=== PATIENT | male | born 1965 | race American Indian/Alaskan Native ===

== ENCOUNTER 2017-04-25 20:56 | Observation (INO) | payer MEDICAID, OTHER ==
--- NOTE | 2017-04-25 21:09 | ED PDOC ---
Arrival/HPI - General Chief Complaint: Chest Pain Time Seen by Provider: 04/25/17 21:08 Historian: Patient - History of Present Illness Narrative History of Present Illness (Text): 04/25/17 21:37 51 year old male presents to the emergency department with left sided chest pain for the past week. He states it is non-exertional and radiates to the left upper extremity. Patient also reports pain behind the left lower extremity. Patient reports he has a history of a clot in the left lower extremity 10 years ago. 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 Time/Duration: 1 week Symptom Onset: Gradual Symptom Course: Unchanged Modifying Factors (Text): None Past Medical History - Provider Review Nursing Documentation Reviewed: Yes - Infectious Disease Hx of Infectious Diseases: None - Cardiac Hx Cardiac Disorders: No - Pulmonary Hx Bronchitis: No - Neurological Hx Neurological Disorder: No - HEENT Hx HEENT Disorder: No - Endocrine/Metabolic Hx Endocrine Disorders: No - Hematological/Oncological Hx Blood Disorders: Yes Other/Comment: DVT in L leg - Integumentary Hx Dermatological Disorder: No - Musculoskeletal/Rheumatological Hx Musculoskeletal Disorders: No - Gastrointestinal Hx Gastrointestinal Disorders: Yes Hx Gastroesophageal Reflux: Yes - Psychiatric Hx Psychophysiologic Disorder: No Hx Substance Use: No - Anesthesia Hx Anesthesia: No Family/Social History - Physician Review Nursing Documentation Reviewed: Yes Family/Social History: Unknown Family HX Smoking Status: Never Smoked Hx Alcohol Use: Yes Frequency of alcohol use: Socially Hx Substance Use: No Allergies/Home Meds Allergies/Adverse Reactions: Allergies No Known Allergies Allergy (Verified 04/25/17 21:03) Home Medications: Home Meds Medication Instructions Recorded Confirmed No Known Home Med 04/25/17 04/25/17 Review of Systems - Physician Review All systems were reviewed & negative as marked: Yes Physical Exam - Physical Exam Narrative Physical Exam (Text): - Review of Systems Constitutional: Normal. absent: Fatigue, Weight Change, Fevers Eyes: Normal ENT: Normal Respiratory: Normal absent: SOB, Cough, Sputum Cardiovascular: Chest Pain, Left lower extremity pain absent: Palpitations, Syncope Gastrointestinal: Normal absent: Abdominal pain, Diarrhea, Nausea, Vomiting Genitourinary: Normal. absent: Dysuria, Frequency, Hematuria Musculoskeletal: Normal. absent: Arthralgias, Back Pain, Neck Pain Skin: Normal Neurological: Normal absent: Focal Weakness Endocrine: Normal Hemo/Lymphatic: Normal Psychiatric: Normal - Physical exam Patient appears age appropriate, speaking full sentences without difficulty - Systems Exam Head: Present: Atraumatic, Normocephalic Pupils: Present: PERRL Extraocular Muscles: Present: EOMI Conjunctiva: Present: Normal Mouth: Present: Moist Mucous Membranes Neck: Present: Normal Range of Motion. No: MIDLINE TENDERNESS, Paraspinal Tenderness Respiratory/Chest: Present: Clear to Auscultation, Good Air Exchange. No: Respiratory Distress, Accessory Muscle Use, Tachypneic Cardiovascular: Present: Regular Rate and Rhythm, Normal S1, S2, Peripheral Pulses Present. No: Murmurs Abdomen: Present: Normal Bowel Sounds, No: Tenderness, Peritoneal Signs, Rebound, Guarding, Distention Back: Present: Normal Inspection. No: Midline Tenderness, Paraspinal Tenderness Upper Extremity: Present: Normal Inspection. No: Cyanosis, Edema Lower Extremity: Present: Normal Inspection. No: Edema Neurological: Present: GCS=15, Speech Normal, cranial nerves II through XII fully intact with no cerebellar abnormality, neuro-sensory fully intact. No focal neurological deficits. Skin: Present: Warm, Dry, Normal Color. No: Rashes Lymphatic: Present: OX3, NI, NC Psychiatric: Present: Alert, Oriented x 3, Normal Insight, Normal Concentration Vital Signs Reviewed: Yes Vital Signs Temp Pulse Resp BP Pulse Ox 04/25/17 21:00 97.7 F 72 18 154/95 H 99 Temperature: Afebrile Blood Pressure: Normal Pulse: Regular Respiratory Rate: Normal Appearance: Positive for: Well-Appearing, Non-Toxic, Comfortable Mental Status: Positive for: Alert and Oriented X 3 Medical Decision Making ED Course and Treatment: Impression: 51 year old male presents to the emergency department with left sided chest pain and left lower extremity pain for the past week. On physical exam, patient has no acute findings. Plan: -- US left lower extremity -- Reassess and disposition Progress Notes: EKG shows NSR at [address]-segment elevations, normal intervals. Interpreted by me. 04/25/17 22:58 Chest xray interpreted by ED physician shows no pneumothorax, no cardiomegaly, no infiltrates 23:[address] Genao, accepted pt to tele pt in no distress, aware of and agrees with plan - Lab Interpretations Lab Results: 04/25/17 22:05 Lab Results 04/25/17 22:05: WBC 8.5, RBC 5.65, Hgb 15.9, Hct 46.0, MCV 81.4, MCH 28.1, MCHC 34.6, RDW 14.4, Plt Count 242, MPV 9.5, Gran % 63.5, Lymph % (Auto) 25.7, Parker % (Auto) 8.6 H, Eos % (Auto) 1.8, Baso % (Auto) 0.4, Gran # 5.38, Lymph # 2.2, Parker # 0.7 H, Eos # 0.2, Baso # 0.03 - RAD Interpretation Radiology Orders: 04/25/17 21:19 CHEST PORTABLE [RAD] Stat 04/25/17 21:40 DUPLEX LOWER EXTRM VEIN LEFT [US] Stat - EKG Interpretation Interpreted by ED Physician: Yes Type: 12 lead EKG - Medication Orders Current Medication Orders: Discontinued Medications Aspirin (Aspirin Chewable) 324 mg PO STAT STA Stop: 04/25/17 21:41 Last Admin: 04/25/17 22:18 Dose: 324 mg Nitroglycerin (Nitrostat Sl Tab) 0.3 mg SL STAT STA Stop: 04/25/17 21:41 Last Admin: 04/25/17 22:18 Dose: 0.3 mg - Scribe Statement The provider has reviewed the documentation as recorded by the Chucho Sigala Provider Scribe Attestation: All medical record entries made by the Mckinleyibgregorio were at my direction and personally dictated by me. I have reviewed the chart and agree that the record accurately reflects my personal performance of the history, physical exam, medical decision making, and the department course for this patient. I have also personally directed, reviewed, and agree with the discharge instructions and disposition. Disposition/Present on Arrival - Present on Arrival Any Indicators Present on Arrival: No History of DVT/PE: No History of Uncontrolled Diabetes: No Urinary Catheter: No History of Decub. Ulcer: No History Surgical Site Infection Following: None - Disposition Have Diagnosis and Disposition been Completed?: Yes Diagnosis: Chest pain Disposition: HOSPITALIZED Disposition Time: 23:06 Patient Plan: Observation Condition: FAIR Discharge Instructions (ExitCare): Chest Pain (ED)
[2017-04-25 22:18] LABS: ADD MANUAL DIFF? NO
[2017-04-25 22:20] LABS: BASO # 0.03 K/mm3 (0.0-2.0); BASO % 0.4 % (0.0-3.0); EOS # 0.2 (0.0-0.7); EOS % 1.8 % (1.5-5.0); GRAN # 5.38 (1.4-6.5); GRAN % 63.5 % (50.0-68.0); LYMPH # 2.2 (1.2-3.4); LYMPH % 25.7 % (22.0-35.0); MEAN CELL VOLUME 81.4 fL (80.0-105.0); MEAN CORPUSCULAR HEMOGLOBIN 28.1 pg (25.0-35.0); MEAN CORPUSCULAR HGB CONC 34.6 g/dl (31.0-37.0); MEAN PLATELET VOLUME 9.5 fl (7.0-11.0); MONO # 0.7 (0.1-0.6); MONO % 8.6 % (1.0-6.0); PLATELET COUNT 242 10^3/uL (120.0-450.0); RED CELL DISTRIBUTION WIDTH 14.4 % (11.5-14.5); WHITE BLOOD COUNT 8.5 10^3/ul (4.5-11.0)
[2017-04-25 22:32] LABS: INR 1.01 (0.93-1.08); PARTIAL THROMBOPLASTIN TIME 26.8 Seconds (23.7-30.8)
[2017-04-25 23:18] LABS: ALKALINE PHOSPHATASE 47 U/L (38-133); ALT/SGPT 39 U/L (7-56); AST/SGOT 26 U/L (15-59); BILIRUBIN,TOTAL 0.3 mg/dL (0.2-1.3); BLOOD UREA NITROGEN 14 mg/dL (7-21); CALCIUM 9.3 mg/dL (8.4-10.5); CARBON DIOXIDE 25 mmol/L (21-33); CHLORIDE 103 mmol/L (98-107); GFR AFRICAN-AMERICAN > 60; GLUCOSE,RANDOM 113 mg/dL (70-110); POTASSIUM 4.1 mmol/L (3.6-5.0); SODIUM 137 mmol/L (132-148); TOTAL PROTEIN 7.3 g/dL (5.8-8.3)
[2017-04-25 23:31] LABS: TROPONIN I < 0.01 ng/mL
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
[2017-04-26 06:13] VITALS: O2SAT 100
[2017-04-26 06:25] LABS: ADD MANUAL DIFF? NO
[2017-04-26 06:29] LABS: BASO # 0.02 K/mm3 (0.0-2.0); BASO % 0.3 % (0.0-3.0); EOS # 0.1 (0.0-0.7); EOS % 1.3 % (1.5-5.0); GRAN # 5.01 (1.4-6.5); GRAN % 63.5 % (50.0-68.0); HEMATOCRIT 42.7 % (42.0-52.0); LYMPH # 2.2 (1.2-3.4); LYMPH % 27.9 % (22.0-35.0); MEAN CELL VOLUME 80.6 fL (80.0-105.0); MEAN CORPUSCULAR HEMOGLOBIN 27.2 pg (25.0-35.0); MEAN CORPUSCULAR HGB CONC 33.7 g/dl (31.0-37.0); MEAN PLATELET VOLUME 9.9 fl (7.0-11.0); MONO # 0.6 (0.1-0.6); PLATELET COUNT 239 10^3/uL (120.0-450.0); RED CELL DISTRIBUTION WIDTH 14.3 % (11.5-14.5); WHITE BLOOD COUNT 7.9 10^3/ul (4.5-11.0)
[2017-04-26 07:00] LABS: TROPONIN I < 0.01 ng/mL
[2017-04-26 07:32] LABS: ALKALINE PHOSPHATASE 44 U/L (38-133); ALT/SGPT 38 U/L (7-56); AST/SGOT 26 U/L (15-59); BILIRUBIN,TOTAL 0.4 mg/dL (0.2-1.3); BLOOD UREA NITROGEN 14 mg/dL (7-21); CALCIUM 9.2 mg/dL (8.4-10.5); CARBON DIOXIDE 24 mmol/L (21-33); CHLORIDE 105 mmol/L (98-107); CHOLESTEROL 183 mg/dL (130-200); GFR AFRICAN-AMERICAN > 60; GLUCOSE,RANDOM 105 mg/dL (70-110); POTASSIUM 4.2 mmol/L (3.6-5.0); SODIUM 137 mmol/L (132-148)
--- NOTE | 2017-04-26 09:38 | RAD ---
HISTORY: cough COMPARISON: No prior. FINDINGS: LUNGS: No active pulmonary disease. PLEURA: No significant pleural effusion identified, no pneumothorax apparent. CARDIOVASCULAR: Normal. OSSEOUS STRUCTURES: No significant abnormalities. VISUALIZED UPPER ABDOMEN: Normal. OTHER FINDINGS: None. IMPRESSION: No active disease.
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
[2017-04-26 11:48] LABS: TROPONIN I < 0.01 ng/mL
[2017-04-26 11:55] VITALS: BP 131/76; RESP 18; TEMP 98.5
--- NOTE | 2017-04-26 11:56 | US ---
PROCEDURE: Left lower extremity venous US HISTORY: Leg pain and swelling. Evaluate for DVT. PHYSICIAN(S): Benito Tang MD. TECHNIQUE: Duplex sonography and color-flow Doppler with graded compression were used to evaluate the deep venous system of the left lower extremity. FINDINGS: The visualized deep venous system of the left lower extremity is sonographically normal and compressible. Normal wave forms and augmentation are seen. There is no sonographic evidence for deep venous thrombosis in the visualized segments of the left lower extremity. IMPRESSION: 1. No sonographic evidence for deep venous thrombosis in the visualized segments of the left lower extremity.
--- NOTE | 2017-04-26 13:49 | CARD ---
APPROVED REPORT EXAM: Two-dimensional and M-mode echocardiogram with Doppler and color Doppler. INDICATION Hypertension/HCVD 2D DIMENSIONS Left Atrium (2D)4.0 (1.6-4.0cm)IVSd1.2 (0.7-1.1cm) LVDd4.9 (3.9-5.9cm)PWd1.1 (0.7-1.1cm) LVDs3.5 (2.5-4.0cm)FS (%) 29.3 % LVEF (%)56.2 (>50%) M-Mode DIMENSIONS Aortic Root2.80 (2.2-3.7cm)Aortic Cusp Exc.1.90 (1.5-2.0cm) Aortic Valve AoV Peak Kcsxloej344.0cm/Heather Peak GR.5mmHg Mitral Valve MV E Gnftdgqt44.1cm/sMV A Sktppwen28.0cm/sE/A ratio1.2 TDI E/Lateral E'0.0E/Medial E'0.0 Tricuspid Valve TR Peak [id number]/sRAP [id number] Peak Gr.10mmHg [id number] LEFT VENTRICLE The left ventricle is normal size. There is borderline concentric left ventricular hypertrophy. The left ventricular function is normal. The left ventricular ejection fraction is within the normal range. There is normal LV segmental wall motion. Transmitral Doppler flow pattern is Grade I-abnormal relaxation pattern. RIGHT VENTRICLE The right ventricle is normal size. There is normal right ventricular wall thickness. The right ventricular systolic function is normal. ATRIA The left atrium size is normal. The right atrium size is normal. AORTIC VALVE The aortic valve is normal in structure. No aortic regurgitation is present. MITRAL VALVE The mitral valve is normal in structure. There is no mitral valve regurgitation noted. TRICUSPID VALVE There is no pulmonary hypertension. GREAT VESSELS The aortic root is normal in size. PERICARDIAL EFFUSION There is no pericardial effusion. <Conclusion> The left ventricle is normal size. There is borderline concentric left ventricular hypertrophy. The left ventricular function is normal. The left ventricular ejection fraction is within the normal range. There is normal LV segmental wall motion. Transmitral Doppler flow pattern is Grade I-abnormal relaxation pattern.
--- NOTE | 2017-04-26 13:50 | CP.PCM.DIS ---
<Hamilton Rincon - Last Filed: 04/26/17 13:37> Provider - Provider Date of Admission: 04/25/17 23:06 Attending physician: Nory Alford MD Primary care physician: NO PRIMARY CARE PROVIDER Consults: Cardio: Jelena Time Spent in preparation of Discharge (in minutes): 25 Diagnosis - Discharge Diagnosis (1) Chest pain Status: Acute (2) Pain and swelling of left lower leg Status: Acute Hospital Course - Lab Results Lab Results: Most Recent Lab Values WBC 7.9 10^3/ul (4.5-11.0) 04/26/17 05:45 RBC 5.30 10^6/uL (3.5-6.1) 04/26/17 05:45 Hgb 14.4 gm/dL (14.0-18.0) 04/26/17 05:45 Hct 42.7 % (42.0-52.0) 04/26/17 05:45 MCV 80.6 fL (80.0-105.0) 04/26/17 05:45 MCH 27.2 pg (25.0-35.0) 04/26/17 05:45 MCHC 33.7 g/dl (31.0-37.0) 04/26/17 05:45 RDW 14.3 % (11.5-14.5) 04/26/17 05:45 Plt Count 239 10^3/uL (120.0-450.0) 04/26/17 05:45 MPV 9.9 fl (7.0-11.0) 04/26/17 05:45 Gran % 63.5 % (50.0-68.0) 04/26/17 05:45 Lymph % (Auto) 27.9 % (22.0-35.0) 04/26/17 05:45 Republic % (Auto) 7.0 % (1.0-6.0) H 04/26/17 05:45 Eos % (Auto) 1.3 % (1.5-5.0) L 04/26/17 05:45 Baso % (Auto) 0.3 % (0.0-3.0) 04/26/17 05:45 Gran # 5.01 (1.4-6.5) 04/26/17 05:45 Lymph # 2.2 (1.2-3.4) 04/26/17 05:45 Republic # 0.6 (0.1-0.6) 04/26/17 05:45 Eos # 0.1 (0.0-0.7) 04/26/17 05:45 Baso # 0.02 K/mm3 (0.0-2.0) 04/26/17 05:45 PT 10.9 Seconds (9.9-11.8) 04/25/17 22:05 INR 1.01 (0.93-1.08) 04/25/17 22:05 APTT 26.8 Seconds (23.7-30.8) 04/25/17 22:05 D-Dimer, Quantitative 0.40 mg/L FEU (0-0.50) 04/25/17 22:05 Sodium 137 mmol/L (132-148) 04/26/17 06:00 Potassium 4.2 mmol/L (3.6-5.0) 04/26/17 06:00 Chloride 105 mmol/L (98-107) 04/26/17 06:00 Carbon Dioxide 24 mmol/L (21-33) 04/26/17 06:00 Anion Gap 12 (10-20) 04/26/17 06:00 BUN 14 mg/dL (7-21) 04/26/17 06:00 Creatinine 0.9 mg/dL (0.5-1.4) 04/26/17 06:00 Est GFR ( Amer) > 60 04/26/17 06:00 Est GFR (Non-Af Amer) > 60 04/26/17 06:00 Random Glucose 105 mg/dL (70-110) 04/26/17 06:00 Hemoglobin A1c 6.7 % (4.2-6.5) H 04/26/17 05:45 Calcium 9.2 mg/dL (8.4-10.5) 04/26/17 06:00 Total Bilirubin 0.4 mg/dL (0.2-1.3) 04/26/17 06:00 AST 26 U/L (15-59) 04/26/17 06:00 ALT 38 U/L (7-56) 04/26/17 06:00 Alkaline Phosphatase 44 U/L (38-133) 04/26/17 06:00 Lactate Dehydrogenase 335 U/L (333-699) 04/26/17 11:00 Total Creatine Kinase 194 U/L (35-230) 04/26/17 11:00 CK-MB (CK-2) 1.1 ng/mL (0.0-3.6) 04/25/17 22:52 CK-MB (CK-2) % Cancelled 04/25/17 22:52 Troponin I < 0.01 ng/mL 04/26/17 11:00 NT-Pro-B Natriuret Pep 19.9 pg/mL (0-450) 04/25/17 22:52 Total Protein 7.0 g/dL (5.8-8.3) 04/26/17 06:00 Albumin 3.5 g/dL (3.0-4.8) 04/26/17 06:00 Globulin 3.5 gm/dL 04/26/17 06:00 Albumin/Globulin Ratio 1.0 (1.1-1.8) L 04/26/17 06:00 Triglycerides 138 mg/dL (35-160) 04/26/17 06:00 Cholesterol 183 mg/dL (130-200) 04/26/17 06:00 LDL Cholesterol Direct 120 mg/dL (0-129) 04/26/17 06:00 HDL Cholesterol 40 mg/dL (29-60) 04/26/17 06:00 TSH 3rd Generation 3.41 mIU/mL (0.46-4.68) 04/26/17 05:50 Urine Opiates Screen Negative (NEGATIVE) 04/26/17 08:15 Urine Methadone Screen Negative (NEGATIVE) 04/26/17 08:15 Ur Barbiturates Screen Negative (NEGATIVE) 04/26/17 08:15 Ur Phencyclidine Scrn Negative (NEGATIVE) 04/26/17 08:15 Ur Amphetamines Screen Negative (NEGATIVE) 04/26/17 08:15 U Benzodiazepines Scrn Negative (NEGATIVE) 04/26/17 08:15 U Oth Cocaine Metabols Negative (NEGATIVE) 04/26/17 08:15 U Cannabinoids Screen Negative (NEGATIVE) 04/26/17 08:15 - Hospital Course Hospital Course: This is a 51 yo M with PMH only of prior LLE DVT (~10 yrs prior) treated with 3 months of coumadin who presented to [facility] with new onset LLE swelling/pain and pain in the left axillary region. While here, patient was also seen by Cardio. Trops x3 were negative, and EKGs x2 were notable for possible LVH and pulmonary disease pattern, but no signs of ACS. LLE Venous Duplex was obtained and was negative for DVT. An echo was obtained, official read still pending. As per Cardio, patient was started on aspirin 81mg PO daily, Metoprolol 25mg PO BID, and Lisinopril 5mg PO daily. Scripts were transmitted electronically to the in-house outpatient pharmacy for a 30 day supply of each, which was delivered to patient at bedside. He was instructed to take all medicines as instructed, to follow up with a PMD or at the [facility] within 1 week, and to follow up with a [facility]. Patient expressed understanding and agreement with these instructions. All questions were answered to his satisfaction, then patient was discharged. Patient seen and discussed with attending, Dr. Alford. Discharge Exam - Head Exam Head Exam: ATRAUMATIC, NORMAL INSPECTION, NORMOCEPHALIC - Eye Exam Eye Exam: Normal appearance. absent: Conjunctival injection, Scleral icterus Pupil Exam: absent: Irregular, Unequal - ENT Exam ENT Exam: Mucous Membranes Moist - Neck Exam Neck exam: Full Rom - Respiratory Exam Respiratory Exam: Decreased Breath Sounds (mildly decreased breath sounds in all licona, likely 2/2 body habitus), Clear to PA & Lateral, NORMAL BREATHING PATTERN, UNREMARKABLE. absent: Accessory Muscle Use, Chest Wall Tenderness, Prolonged Expiratory Phase, Rales, Rhonchi, Wheezes - Cardiovascular Exam Cardiovascular Exam: REGULAR RHYTHM, RRR, +S1, +S2. absent: Bradycardia, Tachycardia, Irregular Rhythm, +S4 - GI/Abdominal Exam GI & Abdominal Exam: Normal Bowel Sounds, Soft, Unremarkable. absent: Diminished Bowel Sounds, Hyperactive Bowel Sounds, Hypoactive Bowel Sounds, Tenderness - Extremities Exam Extremities exam: pedal edema (trace-+1 pitting edema in bilateral ankles to bottom 1/3rd of shins) Additional comments: no tenderness to palpation in bilateral LE, no calf tenderness, no erythema/ warmth to palpation/gross asymmetry of bilateral LE - Neurological Exam Neurological exam: Alert, Oriented x3 - Psychiatric Exam Psychiatric exam: Normal Affect, Normal Mood - Skin Skin Exam: Dry, Intact, Normal Color, Warm Discharge Plan - Discharge Medications Prescriptions: Aspirin [Ciales Aspirin] 81 mg PO DAILY #30 tab.chew Lisinopril [Zestril] 5 mg PO DAILY #30 tablet Metoprolol Tartrate [Lopressor] 25 mg PO BID #60 tab - Follow Up Plan Condition: FAIR Disposition: HOME/ ROUTINE Instructions: Chest Pain (DC), Chest Pain (GEN), Pulmonary Embolism (DC), Deep Venous Thrombosis (DC), Safe Use of Anticoagulants (DC), Blood Thinners (DC) Additional Instructions: Please take all prescriptions as instructed. Please follow up with the [facility] clinic or with your PMD within 1 week. Please establish yourself with a marine engineering professor and follow up. Please avoid high sugar and high fat diets. Referrals: [facility] at [facility] [Outside] PCP,NO [Primary Care Provider] - <Nory Alford - Last Filed: 04/26/17 14:12> Provider - Provider Date of Admission: 04/25/17 23:06 Attending physician: Nory Alford MD Primary care physician: NO PRIMARY CARE PROVIDER Hospital Course - Lab Results Lab Results: Most Recent Lab Values WBC 7.9 10^3/ul (4.5-11.0) 04/26/17 05:45 RBC 5.30 10^6/uL (3.5-6.1) 04/26/17 05:45 Hgb 14.4 gm/dL (14.0-18.0) 04/26/17 05:45 Hct 42.7 % (42.0-52.0) 04/26/17 05:45 MCV 80.6 fL (80.0-105.0) 04/26/17 05:45 MCH 27.2 pg (25.0-35.0) 04/26/17 05:45 MCHC 33.7 g/dl (31.0-37.0) 04/26/17 05:45 RDW 14.3 % (11.5-14.5) 04/26/17 05:45 Plt Count 239 10^3/uL (120.0-450.0) 04/26/17 05:45 MPV 9.9 fl (7.0-11.0) 04/26/17 05:45 Gran % 63.5 % (50.0-68.0) 04/26/17 05:45 Lymph % (Auto) 27.9 % (22.0-35.0) 04/26/17 05:45 Republic % (Auto) 7.0 % (1.0-6.0) H 04/26/17 05:45 Eos % (Auto) 1.3 % (1.5-5.0) L 04/26/17 05:45 Baso % (Auto) 0.3 % (0.0-3.0) 04/26/17 05:45 Gran # 5.01 (1.4-6.5) 04/26/17 05:45 Lymph # 2.2 (1.2-3.4) 04/26/17 05:45 Republic # 0.6 (0.1-0.6) 04/26/17 05:45 Eos # 0.1 (0.0-0.7) 04/26/17 05:45 Baso # 0.02 K/mm3 (0.0-2.0) 04/26/17 05:45 PT 10.9 Seconds (9.9-11.8) 04/25/17 22:05 INR 1.01 (0.93-1.08) 04/25/17 22:05 APTT 26.8 Seconds (23.7-30.8) 04/25/17 22:05 D-Dimer, Quantitative 0.40 mg/L FEU (0-0.50) 04/25/17 22:05 Sodium 137 mmol/L (132-148) 04/26/17 06:00 Potassium 4.2 mmol/L (3.6-5.0) 04/26/17 06:00 Chloride 105 mmol/L (98-107) 04/26/17 06:00 Carbon Dioxide 24 mmol/L (21-33) 04/26/17 06:00 Anion Gap 12 (10-20) 04/26/17 06:00 BUN 14 mg/dL (7-21) 04/26/17 06:00 Creatinine 0.9 mg/dL (0.5-1.4) 04/26/17 06:00 Est GFR ( Amer) > 60 04/26/17 06:00 Est GFR (Non-Af Amer) > 60 04/26/17 06:00 Random Glucose 105 mg/dL (70-110) 04/26/17 06:00 Hemoglobin A1c 6.7 % (4.2-6.5) H 04/26/17 05:45 Calcium 9.2 mg/dL (8.4-10.5) 04/26/17 06:00 Total Bilirubin 0.4 mg/dL (0.2-1.3) 04/26/17 06:00 AST 26 U/L (15-59) 04/26/17 06:00 ALT 38 U/L (7-56) 04/26/17 06:00 Alkaline Phosphatase 44 U/L (38-133) 04/26/17 06:00 Lactate Dehydrogenase 335 U/L (333-699) 04/26/17 11:00 Total Creatine Kinase 194 U/L (35-230) 04/26/17 11:00 CK-MB (CK-2) 1.1 ng/mL (0.0-3.6) 04/25/17 22:52 CK-MB (CK-2) % Cancelled 04/25/17 22:52 Troponin I < 0.01 ng/mL 04/26/17 11:00 NT-Pro-B Natriuret Pep 19.9 pg/mL (0-450) 04/25/17 22:52 Total Protein 7.0 g/dL (5.8-8.3) 04/26/17 06:00 Albumin 3.5 g/dL (3.0-4.8) 04/26/17 06:00 Globulin 3.5 gm/dL 04/26/17 06:00 Albumin/Globulin Ratio 1.0 (1.1-1.8) L 04/26/17 06:00 Triglycerides 138 mg/dL (35-160) 04/26/17 06:00 Cholesterol 183 mg/dL (130-200) 04/26/17 06:00 LDL Cholesterol Direct 120 mg/dL (0-129) 04/26/17 06:00 HDL Cholesterol 40 mg/dL (29-60) 04/26/17 06:00 TSH 3rd Generation 3.41 mIU/mL (0.46-4.68) 04/26/17 05:50 Urine Opiates Screen Negative (NEGATIVE) 04/26/17 08:15 Urine Methadone Screen Negative (NEGATIVE) 04/26/17 08:15 Ur Barbiturates Screen Negative (NEGATIVE) 04/26/17 08:15 Ur Phencyclidine Scrn Negative (NEGATIVE) 04/26/17 08:15 Ur Amphetamines Screen Negative (NEGATIVE) 04/26/17 08:15 U Benzodiazepines Scrn Negative (NEGATIVE) 04/26/17 08:15 U Oth Cocaine Metabols Negative (NEGATIVE) 04/26/17 08:15 U Cannabinoids Screen Negative (NEGATIVE) 04/26/17 08:15 Attending/Attestation - Attestation I have personally seen and examined this patient.: Yes I have fully participated in the care of the patient.: Yes I have reviewed all pertinent clinical information, including history, physical exam and plan: Yes Notes (Text): 04/26/17 14:10 attending note; Patient seen and examined with resident. patient is a 51-year-old obese male with a past medical history of DVT is admitted with left lower extremity swelling. Doppler is negative for DVT. Hypertension; started on metoprolol and lisinopril. Dietary education given. cardiac enzymes negative. Echo with no significant abnormality. Cardiology evaluation appreciated. hypercoagulable workup in progress. Advised to follow up results with [facility] clinic as outpatient. Advised to follow-up with [facility] clinic. Advised to complete twyla Paperwork. Diagnosis; Uncontrolled hypertension Obesity History of DVT in the past. 04/26/17 14:12
[2017-04-26 15:08] VITALS: PULSE 81
--- NOTE | 2017-04-27 16:14 | CARD ---
APPROVED REPORT EKG Measurement Heart [id number] CO [id number] [id number] <Conclusion> Normal sinus rhythm Left axis deviation Anteroseptal infarct, age undetermined Abnormal ECG
--- NOTE | 2017-04-27 16:18 | CARD ---
APPROVED REPORT EKG Measurement Heart [id number] <Conclusion> Normal sinus rhythm Possible Left atrial enlargement Left axis deviation Pulmonary disease pattern Left ventricular hypertrophy Nonspecific ST abnormality Abnormal ECG
== END 2017-04-26 15:29 | disposition home or self-care (01) ==
LOC: ED 20:56 → ERH 23:06 → 2RNO 04-26 01:55
PROVIDERS: ADMIT Internal Medicine; ATTEND Internal Medicine
DX: R07.89 Other chest pain (principal); M79.89 Other specified soft tissue disorders; M79.662 Pain in left lower leg; I10 Essential (primary) hypertension; K21.9 Gastro-esophageal reflux disease without esophagitis; E66.01 Morbid (severe) obesity due to excess calories; Z68.41 Body mass index [BMI] 40.0-44.9, adult; Z86.718 Personal history of other venous thrombosis and embolism
CPT/HCPCS: 36415; 71010; 80053; 80061; 81240; 82550; 82553; 83036; 83615; 83880; 84443; 84484; 85025; 85290; 85300; 85303; 85306; 85378; 85610; 85730; 93005; 93306; 93971; 99285; G0378; G0480

== ENCOUNTER 2017-11-20 15:09 | Emergency (ER) | payer OTHER ==
[2017-11-20 15:10] VITALS: BMI 39.1
[2017-11-20 15:41] VITALS: BP 125/87; PULSE 60; RESP 16; TEMP 97.9; O2SAT 96
--- NOTE | 2017-11-20 16:28 | ED PDOC ---
Arrival/HPI - General Chief Complaint: Dizziness/Lightheaded Time Seen by Provider: 11/20/17 16:01 Historian: Patient - History of Present Illness Narrative History of Present Illness (Text): 11/20/17 16:22 52 year old male, whose past medical history includes hypertension, presents to the emergency department complaining of left sided neck pain that began 2-3 days ago. Patient also reports his light headed symptoms that have been occurring for 2 months have worsened once the neck pain began. Patient denies any injuries or numbness. Patient denies any fever, chills, chest pain, shortness of breath, nausea, vomiting, diarrhea, urinary symptoms, back pain, headache, dizziness, or any other complaints. Time/Duration: Other (2-3 days) Symptom Onset: Sudden Symptom Course: Unchanged Activities at Onset: Light Context: Home Past Medical History - Provider Review Nursing Documentation Reviewed: Yes - Infectious Disease Hx of Infectious Diseases: None - Cardiac Hx Cardiac Disorders: Yes Hx Hypertension: Yes - Pulmonary Hx Respiratory Disorders: No - Neurological Hx Neurological Disorder: No - HEENT Hx HEENT Disorder: No - Renal Hx Renal Disorder: No - Endocrine/Metabolic Hx Endocrine Disorders: No - Hematological/Oncological Hx Blood Disorders: No - Integumentary Hx Dermatological Disorder: No - Musculoskeletal/Rheumatological Hx Musculoskeletal Disorders: No Hx Falls: No - Gastrointestinal Hx Gastrointestinal Disorders: No - Genitourinary/Gynecological Hx Genitourinary Disorders: No - Psychiatric Hx Psychophysiologic Disorder: No Hx Substance Use: No - Anesthesia Hx Anesthesia: No Family/Social History - Physician Review Nursing Documentation Reviewed: Yes Family/Social History: No Known Family HX Smoking Status: Never Smoked Hx Alcohol Use: Yes (social) Frequency of alcohol use: Socially Hx Substance Use: No Allergies/Home Meds Allergies/Adverse Reactions: Allergies No Known Allergies Allergy (Verified 11/20/17 15:31) Home Medications: Home Meds Medication Instructions Recorded Confirmed Meclizine [Antivert] 25 mg PO Q8 09/26/17 11/20/17 Tamsulosin [Flomax] 0.4 mg PO DAILY 09/26/17 11/20/17 Review of Systems - Physician Review All systems were reviewed & negative as marked: Yes - Review of Systems Constitutional: absent: Fevers, Other (Chills) Respiratory: absent: SOB Cardiovascular: absent: Chest Pain Gastrointestinal: absent: Diarrhea, Nausea, Vomiting Genitourinary Male: absent: Dysuria, Frequency, Hematuria Musculoskeletal: Neck Pain. absent: Back Pain Neurological: absent: Headache, Dizziness Physical Exam Vital Signs Reviewed: Yes Vital Signs Temp Pulse Resp BP Pulse Ox 11/20/17 15:39 97.9 F 60 16 125/87 96 Temperature: Afebrile Blood Pressure: Normal Pulse: Regular Respiratory Rate: Normal Appearance: Positive for: Well-Appearing, Non-Toxic, Comfortable Pain Distress: None Mental Status: Positive for: Alert and Oriented X 3 - Systems Exam Head: Present: Atraumatic, Normocephalic Pupils: Present: PERRL Extroacular Muscles: Present: EOMI Conjunctiva: Present: Normal Mouth: Present: Moist Mucous Membranes Neck: Present: Paraspinal Tenderness (Left paraspinal tenderness and spasm ), Other (5/5 strength). No: Normal Range of Motion (Decreased ROM when looked to the left), MIDLINE TENDERNESS Respiratory/Chest: Present: Clear to Auscultation, Good Air Exchange. No: Respiratory Distress, Accessory Muscle Use Cardiovascular: Present: Regular Rate and Rhythm, Normal S1, S2. No: Murmurs Abdomen: Present: Normal Bowel Sounds. No: Tenderness, Distention, Peritoneal Signs Back: Present: Normal Inspection Upper Extremity: Present: Normal Inspection. No: Cyanosis, Edema Lower Extremity: Present: Normal Inspection. No: Edema Neurological: Present: GCS=15, CN II-XII Intact, Speech Normal Skin: Present: Warm, Dry, Normal Color. No: Rashes Psychiatric: Present: Alert, Oriented x 3, Normal Insight, Normal Concentration Medical Decision Making ED Course and Treatment: 11/20/17 16:22 Impression: 52 year old male presents complaining of left sided neck pain that began 2-3 days ago. Plan: -- Reassess and disposition Progress Notes: - Scribe Statement The provider has reviewed the documentation as recorded by the Chucho Anders Provider Scribe Attestation: All medical record entries made by the Scribgregorio were at my direction and personally dictated by me. I have reviewed the chart and agree that the record accurately reflects my personal performance of the history, physical exam, medical decision making, and the department course for this patient. I have also personally directed, reviewed, and agree with the discharge instructions and disposition. Disposition/Present on Arrival - Present on Arrival Any Indicators Present on Arrival: No History of DVT/PE: No History of Uncontrolled Diabetes: No Urinary Catheter: No History of Decub. Ulcer: No History Surgical Site Infection Following: None - Disposition Have Diagnosis and Disposition been Completed?: Yes Diagnosis: Torticollis, Dizziness Disposition: HOME/ ROUTINE Disposition Time: 16:30 Patient Plan: Discharge Condition: STABLE Prescriptions: Methocarbamol [Robaxin-750] 1,500 mg PO BID #14 tab Naproxen [Naprosyn] 500 mg PO BID PRN #15 tablet PRN Reason: Pain, Moderate (4-7) Referrals: Renato Benton MD [Primary Care Provider] - Follow up with primary Forms: [facility] (Angolan)
== END 2017-11-20 16:41 | disposition home or self-care (01) ==
LOC: ED 15:09
DX: R42 Dizziness and giddiness (principal); M43.6 Torticollis

== ENCOUNTER 2017-12-12 20:27 | Emergency (ER) | payer OTHER ==
[2017-12-12 20:34] VITALS: BMI 39.9
[2017-12-12 20:38] VITALS: RESP 18; TEMP 97.4
[2017-12-12] MEDS ORDERED: Alum-Mag Hydrox-Simethicone Susp (30 mL) PO STA (20:52)
[2017-12-12] MEDS ORDERED: Sodium Chloride 0.9% 500 ML IV STA (20:52)
[2017-12-12] MEDS ORDERED: Morphine 4 mg/ml ISec IVP STA (20:53)
--- NOTE | 2017-12-12 21:28 | ED PDOC ---
Arrival/HPI - General Chief Complaint: Abdominal Pain Time Seen by Provider: 12/12/17 20:51 Historian: Patient - History of Present Illness Narrative History of Present Illness (Text): 12/12/17 21:17 A 52 year old male presents to the emergency department complaining of epigastric pain for 2 days. Patient describes the pain as a burning sensation with associated nausea and non-bilious non-bloody vomiting. He reports that he is tasting an "acid taste" in his mouth. He reports similar complaint when he was previously diagnosed with stomach ulcers. Patient was seen by PMD today and prescribed medication with no relief of symptoms. Patient reports normal bowel movement today and denies any fever, chills, diarrhea, constipation, urinary symptoms, chest pain, shortness of breath or any other complaints. Patient last had a normal stress test on 09/26/17. PMD: Dr. Benton 12/12/17 21:55 Time/Duration: Other (2 days) Symptom Course: Unchanged Context: Home Past Medical History - Provider Review Nursing Documentation Reviewed: Yes - Infectious Disease Hx of Infectious Diseases: None - Cardiac Hx Cardiac Disorders: Yes Hx Hypertension: Yes - Pulmonary Hx Respiratory Disorders: No - Neurological Hx Neurological Disorder: No - HEENT Hx HEENT Disorder: No - Renal Hx Renal Disorder: No - Endocrine/Metabolic Hx Endocrine Disorders: No Hx Diabetes Mellitus Type 2: Yes - Hematological/Oncological Hx Blood Disorders: No - Integumentary Hx Dermatological Disorder: No - Musculoskeletal/Rheumatological Hx Musculoskeletal Disorders: No Hx Falls: No - Gastrointestinal Hx Gastrointestinal Disorders: No - Genitourinary/Gynecological Hx Genitourinary Disorders: No - Psychiatric Hx Psychophysiologic Disorder: No Hx Substance Use: No - Anesthesia Hx Anesthesia: No Family/Social History - Physician Review Nursing Documentation Reviewed: Yes Family/Social History: No Known Family HX Smoking Status: Never Smoked Hx Alcohol Use: Yes (social) Hx Substance Use: No Allergies/Home Meds Allergies/Adverse Reactions: Allergies No Known Allergies Allergy (Verified 11/20/17 15:31) Home Medications: Home Meds Medication Instructions Recorded Confirmed Meclizine [Antivert] 25 mg PO Q8 09/26/17 12/12/17 Isosorbide Mononitrate [Isosorbide 1 tab PO DAILY 12/12/17 12/12/17 Mononitrate ER] Review of Systems - Physician Review All systems were reviewed & negative as marked: Yes - Review of Systems Constitutional: absent: Fevers, Night Sweats Respiratory: absent: SOB, Cough, Sputum Cardiovascular: absent: Chest Pain, Palpitations Gastrointestinal: Abdominal Pain, Nausea, Vomiting. absent: Constipation, Diarrhea Genitourinary Male: absent: Dysuria, Frequency, Hematuria Skin: absent: Rash Physical Exam Vital Signs Reviewed: Yes Vital Signs Temp Pulse Resp BP Pulse Ox 12/12/17 20:36 97.4 F L 63 18 103/61 100 Temperature: Afebrile Blood Pressure: Normal Pulse: Regular Respiratory Rate: Normal Appearance: Positive for: Well-Appearing, Non-Toxic, Comfortable Pain Distress: None Mental Status: Positive for: Alert and Oriented X 3 - Systems Exam Head: Present: Atraumatic, Normocephalic Pupils: Present: PERRL Extroacular Muscles: Present: EOMI Conjunctiva: Present: Normal Mouth: Present: Moist Mucous Membranes Neck: Present: Normal Range of Motion Respiratory/Chest: Present: Clear to Auscultation, Good Air Exchange. No: Respiratory Distress, Accessory Muscle Use Cardiovascular: Present: Regular Rate and Rhythm, Normal S1, S2. No: Murmurs Abdomen: Present: Tenderness (Scant epigastric tenderness to palpation), Normal Bowel Sounds. No: Distention, Peritoneal Signs, Rebound, Guarding Back: Present: Normal Inspection Upper Extremity: Present: Normal Inspection. No: Cyanosis, Edema Lower Extremity: Present: Normal Inspection. No: Edema Neurological: Present: GCS=15, CN II-XII Intact, Speech Normal Skin: Present: Warm, Dry, Normal Color. No: Rashes Psychiatric: Present: Alert, Oriented x 3, Normal Insight, Normal Concentration Medical Decision Making ED Course and Treatment: 12/12/17 21:17 Impression: A 52 year old male with epigastric pain, nausea and vomiting Plan: -- Chest xray -- EKG -- Labs -- Maalox, Pepcid, Morphine, Zofran and IV fluids -- Reassess and disposition Progress Notes: EKG shows NSR at 58 BPM with LAD, LVH, no ST changes. Interpreted by me. 12/12/17 21:45 Labs grossly normal. Patient is feeling better after medication. He is tolerating po. Abdomen is now soft NT/ND. Call placed to Dr. Benton. She can see patient tomorrow in her office to reevaluate. Patient will likely need GI evaluation for endoscopy - Lab Interpretations Lab Results: 12/12/17 21:10 12/12/17 21:10 Lab Results 12/12/17 21:10: Sodium 142, Potassium 4.6, Chloride 105, Carbon Dioxide 26, Anion Gap 16, BUN 14, Creatinine 0.9, Est GFR ( Amer) > 60, Est GFR (Non- Af Amer) > 60, Random Glucose 84, Calcium 9.7, Phosphorus 3.3, Magnesium 1.8, Total Bilirubin 0.6, AST 36, ALT 34, Alkaline Phosphatase 38, Troponin I < 0.01 , Total Protein 7.5, Albumin 3.9, Globulin 3.6, Albumin/Globulin Ratio 1.1, Lipase 45 12/12/17 21:10: WBC 8.2, RBC 5.26, Hgb 14.3, Hct 42.7, MCV 81.2, MCH 27.2, MCHC 33.5, RDW 14.4, Plt Count 246, MPV 9.9, Gran % 55.9, Lymph % (Auto) 29.2, Mcdonough % (Auto) 10.9 H, Eos % (Auto) 3.8, Baso % (Auto) 0.2, Gran # 4.60, Lymph # (Auto ) 2.4, Mcdonough # (Auto) 0.9 H, Eos # (Auto) 0.3, Baso # (Auto) 0.02 I have reviewed the lab results: Yes - RAD Interpretation Radiology Orders: 12/12/17 20:53 CHEST PORTABLE [RAD] Stat - Medication Orders Current Medication Orders: Discontinued Medications Al Hydrox/Mg Hydrox/Simethicone (Maalox Plus 30 Ml) 30 ml PO STAT STA Stop: 12/12/17 20:53 Last Admin: 12/12/17 21:17 Dose: 30 ml Famotidine (Pepcid) 20 mg IVP STAT STA Stop: 12/12/17 20:53 Last Admin: 12/12/17 21:17 Dose: 20 mg IVP Administration Document 12/12/17 21:17 YP (Rec: 12/12/17 21:17 YP [id number]) Charges for Administration # of IVP Administrations 1 Sodium Chloride (Sodium Chloride 0.9%) 500 mls @ 999 mls/hr IV .Q31M STA Stop: 12/12/17 21:22 Last Admin: 12/12/17 21:16 Dose: 999 mls/hr eMAR Start Stop Document 12/12/17 21:16 YP (Rec: 12/12/17 21:16 YP [id number]) Intravenous Solution Start Date 12/12/17 Start Time 21:16 End Date 12/12/17 End time 21:46 Total Infusion Time 30 Morphine Sulfate (Morphine) 4 mg IVP STAT STA Stop: 12/12/17 20:54 Last Admin: 12/12/17 21:17 Dose: 4 mg MAR Pain Assessment Document 12/12/17 21:17 YP (Rec: 12/12/17 21:17 YP [id number]) Pain Reassessment Is this a pain reassessment? No Sleep Is patient sleeping during reassessment? No Presence of Pain Presence of Pain Yes IVP Administration Document 12/12/17 21:17 YP (Rec: 12/12/17 21:17 YP [id number]) Charges for Administration # of IVP Administrations 1 Ondansetron HCl (Zofran Inj) 4 mg IVP STAT STA Stop: 12/12/17 20:53 Last Admin: 12/12/17 21:17 Dose: 4 mg IVP Administration Document 12/12/17 21:17 YP (Rec: 12/12/17 21:17 YP [id number]) Charges for Administration # of IVP Administrations 1 - Scribe Statement The provider has reviewed the documentation as recorded by the Mckinleyibgregorio Jalloh Provider Scribe Attestation: All medical record entries made by the Scribe were at my direction and personally dictated by me. I have reviewed the chart and agree that the record accurately reflects my personal performance of the history, physical exam, medical decision making, and the department course for this patient. I have also personally directed, reviewed, and agree with the discharge instructions and disposition. Disposition/Present on Arrival - Present on Arrival Any Indicators Present on Arrival: No History of DVT/PE: No History of Uncontrolled Diabetes: No Urinary Catheter: No History of Decub. Ulcer: No History Surgical Site Infection Following: None - Disposition Have Diagnosis and Disposition been Completed?: Yes Diagnosis: Epigastric pain Disposition: HOME/ ROUTINE Disposition Time: 21:47 Patient Plan: Discharge Patient Problems: Current Active Problems Problem Status Onset Epigastric pain Acute Condition: GOOD Discharge Instructions (ExitCare): Gastritis (ED), Diet for Ulcers and Gastritis (ED), Epigastric Pain (ED) Additional Instructions: Follow-up with Dr. Benton tomorrow morning. Return to ED if condition worsens. Prescriptions: Famotidine [Pepcid] 40 mg PO DAILY #30 tab Referrals: Renato Benton MD [Primary Care Provider] - Follow up with primary Oma Jett MD [Medical Doctor] - Follow up with primary Forms: [employer] (Martiniquais)
[2017-12-12 21:32] LABS: BASO # 0.02 K/mm3 (0.0-2.0); BASO % 0.2 % (0.0-3.0); EOS # 0.3 (0.0-0.7); EOS % 3.8 % (1.5-5.0); GRAN # 4.6 (1.4-6.5); GRAN % 55.9 % (50.0-68.0); HEMOGLOBIN 14.3 g/dL (14.0-18.0); LYMPH # 2.4 (1.2-3.4); LYMPH % 29.2 % (22.0-35.0); MEAN CELL VOLUME 81.2 fl (80.0-105.0); MEAN CORPUSCULAR HEMOGLOBIN 27.2 pg (25.0-35.0); MEAN CORPUSCULAR HGB CONC 33.5 g/dl (31.0-37.0); MEAN PLATELET VOLUME 9.9 fl (7.0-11.0); MONO # 0.9 (0.1-0.6); MONO % 10.9 % (1.0-6.0); RBC 5.26 10^6/uL (3.5-6.1); RED CELL DISTRIBUTION WIDTH 14.4 % (11.5-14.5); WHITE BLOOD COUNT 8.2 10^3/ul (4.5-11.0)
[2017-12-12 21:46] LABS: ALB/GLOB RATIO 1.1 (1.1-1.8); ALBUMIN 3.9 g/dL (3.0-4.8); ALT/SGPT 34 U/L (7-56); AST/SGOT 36 U/L (17-59); BLOOD UREA NITROGEN 14 mg/dL (7-21); CALCIUM 9.7 mg/dL (8.4-10.5); GFR AFRICAN-AMERICAN > 60; GFR NON-AFRICAN AMERICAN > 60; LIPASE 45 U/L (23-300); MAGNESIUM 1.8 mg/dL (1.7-2.2)
[2017-12-12 21:53] LABS: TROPONIN I < 0.01 ng/mL
[2017-12-12 21:58] VITALS: BP 122/69; PULSE 62; O2SAT 95
--- NOTE | 2017-12-13 11:22 | RAD ---
HISTORY: epigastric pain, NEED UPRIGHT COMPARISON: 04/25/2017 FINDINGS: LUNGS: No active pulmonary disease. PLEURA: No significant pleural effusion identified, no pneumothorax apparent. CARDIOVASCULAR: Normal. OSSEOUS STRUCTURES: No significant abnormalities. VISUALIZED UPPER ABDOMEN: Normal. OTHER FINDINGS: None. IMPRESSION: No active disease.
--- NOTE | 2017-12-13 16:16 | CARD ---
APPROVED REPORT EKG Measurement Heart [id number] <Conclusion> Sinus bradycardia Left axis deviation Minimal voltage criteria for LVH, may be normal variant Abnormal ECG
== END 2017-12-12 22:04 | disposition home or self-care (01) ==
LOC: ED 20:27
DX: R10.13 Epigastric pain (principal); E11.9 Type 2 diabetes mellitus without complications; I10 Essential (primary) hypertension
CPT/HCPCS: 71045; 80053; 83690; 83735; 84100; 84484; 85025; 93005; 96374; 96375; 99284; J2270; J2405; J7040

== ENCOUNTER 2018-10-05 14:06 | Emergency (ER) | payer MEDICAID, OTHER ==
[2018-10-05 14:07] VITALS: BMI 39.9
--- NOTE | 2018-10-05 14:19 | ED PDOC ---
Arrival/HPI - General Chief Complaint: Chest Pain Historian: Patient - History of Present Illness Narrative History of Present Illness (Text): 10/05/18 14:16 53 y/o male, pmh including htn/dm/dvt, nkda, c/o lt. sided chest pain x 5 days. Aching pain, aggravated by touching and movement, no numbness or tingling, no nausea or vomiting, admits rt. thigh pain and lt. calf pain for the past 1 week, no palpitation, no shortness of breath, no night sweat, no numbness or tingling, no rash, no urinary symptoms, no other medical or psychological complaints. Past Medical History - Provider Review Nursing Documentation Reviewed: Yes - Infectious Disease Hx of Infectious Diseases: None - Cardiac Hx Cardiac Disorders: Yes Hx Hypertension: Yes - Pulmonary Hx Respiratory Disorders: No - Neurological Hx Neurological Disorder: No - HEENT Hx HEENT Disorder: No - Renal Hx Renal Disorder: No - Endocrine/Metabolic Hx Endocrine Disorders: No Hx Diabetes Mellitus Type 2: Yes - Hematological/Oncological Hx Blood Disorders: No - Integumentary Hx Dermatological Disorder: No - Musculoskeletal/Rheumatological Hx Musculoskeletal Disorders: No - Gastrointestinal Hx Gastrointestinal Disorders: No - Genitourinary/Gynecological Hx Genitourinary Disorders: No - Psychiatric Hx Psychophysiologic Disorder: No Hx Substance Use: No - Anesthesia Hx Anesthesia: No Family/Social History - Physician Review Nursing Documentation Reviewed: Yes Family/Social History: Unknown Family HX Smoking Status: Never Smoked Hx Alcohol Use: Yes (social) Hx Substance Use: No Allergies/Home Meds Allergies/Adverse Reactions: Allergies No Known Allergies Allergy (Verified 11/20/17 15:31) Home Medications: Home Meds Medication Instructions Recorded Confirmed Meclizine [Antivert] 25 mg PO Q8 09/26/17 12/12/17 Isosorbide Mononitrate [Isosorbide 1 tab PO DAILY 12/12/17 12/12/17 Mononitrate ER] Review of Systems - Physician Review All systems were reviewed & negative as marked: Yes - Review of Systems Constitutional: absent: Fatigue, Fevers Eyes: absent: Vision Changes ENT: absent: Hearing Changes Respiratory: absent: SOB, Cough Cardiovascular: Chest Pain Gastrointestinal: absent: Abdominal Pain, Diarrhea, Nausea, Vomiting Musculoskeletal: Myalgias. absent: Arthralgias, Back Pain Skin: absent: Rash, Pruritis Neurological: absent: Headache, Dizziness Psychiatric: absent: Anxiety, Depression, Suicidal Ideation Physical Exam Vital Signs Reviewed: Yes Vital Signs Temp Pulse Resp BP Pulse Ox 10/05/18 14:07 97.8 F 97 H 18 148/68 94 L Temperature: Afebrile Blood Pressure: Normal Pulse: Regular Respiratory Rate: Normal Appearance: Positive for: Well-Appearing, Non-Toxic, Comfortable Pain Distress: Mild Mental Status: Positive for: Alert and Oriented X 3 - Systems Exam Head: Present: Atraumatic, Normocephalic Pupils: Present: PERRL Extroacular Muscles: Present: EOMI Conjunctiva: Present: Normal Mouth: Present: Moist Mucous Membranes Neck: Present: Normal Range of Motion Respiratory/Chest: Present: Clear to Auscultation, Good Air Exchange, Tender to Palpation (lt. sided chest pectoralis major muscle region, no deformity, no rash). No: Respiratory Distress, Accessory Muscle Use, Wheezes, Decreased Breath Sounds, Rales, Retracting, Rhonchi, Tachypneic Cardiovascular: Present: Regular Rate and Rhythm, Normal S1, S2. No: Murmurs Abdomen: No: Tenderness, Distention, Peritoneal Signs Back: Present: Normal Inspection Upper Extremity: Present: Normal Inspection, Normal ROM, NORMAL PULSES, Neurovascularly Intact, Capillary Refill < 2s. No: Cyanosis, Edema, Tenderness, Swelling, Erythema, Deformity Lower Extremity: Present: Normal Inspection, NORMAL PULSES, Normal ROM, Neurovascularly Intact, Capillary Refill < 2 s. No: Edema, CALF TENDERNESS, Cyanosis, Neva's Sign, Tenderness, Swelling, Erythema, Deformity Neurological: Present: GCS=15, CN II-XII Intact, Speech Normal, Motor Func Grossly Intact, Gait Normal, Memory Normal Skin: Present: Warm, Dry, Normal Color. No: Rashes Psychiatric: Present: Alert, Oriented x 3, Normal Insight, Normal Concentration Medical Decision Making ED Course and Treatment: 10/05/18 14:18 -labs -ekg -cxr -oxygen 2L/toradol 30mg IV -Observe and reassess 10/05/18 16:14 -EKG: NSR @ 90 BPM, no acute ST or T wave changes compared with previous ekg. -Bilateral LE venuous doppler: as per preliminary report, no acute DVT -CXR show No focal consolidation. -Labs show no acute findings except CPK 258 -Mg within normal limit -BNP within normal limit -Trop within normal limit after 24 hours -Dimer within normal limit. -Pt. stated that he feels better, all labs and radiology results discussed with him, he refused to stay for any further labs/radiology or any consults, stated that he wants to leave which I don't recommend him to leave. -AMA AMA ER The patient refuses to stay in the Emergency Room (ER) to continue the care and wishes to leave the emergency department against my medical advice. Patient was told that staying in the ER is necessary and a full explanation of the reasons why was given, and understood by the patient with alert and oriented x4. The risk of leaving were explained in laymans term and including but not limited to myocardial infarction/heart attack, dissection, pulmonary embolism, pneumonia, pain, worsening of condition, permanent disability and from an undiagnosed or untreated condition. The patient accepts these risks, and is in my judgment is competent and capable of understanding the clinical situation and explanation of the risk of leaving. The patient is able to verbally repeated me back the above explained risks and benefits back to me, and verbally expressed understanding. Patient was given the opportunity to ask questions and change mind. The patient was instructed regarding the best care for the present symptoms, and to follow up as soon as possible with the primary care doctor including specialist or return to the emergency department at any time for continuing care. -You signout against medical advice. You were advised to stay at the hospital for admission for your chest pain, continue all your medications, return to the ER for continuity of care for admission, go see your own pmd and pattern painter as soon as possible. - RAD Interpretation Radiology Orders: Bilateral LE Venuous doppler: as per preliminary report, no acute DVT Chest xray: HISTORY: chest pain COMPARISON: Chest x-ray performed 12/12/17 TECHNIQUE: Chest, one view. FINDINGS: Examination limited by habitus. LUNGS: No focal consolidation. Please note that chest x-ray has limited sensitivity for the detection of pulmonary masses. PLEURA: No significant pleural effusion identified. No definite pneumothorax . CARDIOVASCULAR: Heart size appears top normal. No significant atherosclerotic calcification present. OSSEOUS STRUCTURES: Degenerative changes. VISUALIZED UPPER ABDOMEN: Unremarkable. OTHER FINDINGS: None. IMPRESSION: No focal consolidation. Director Meetings: Radiologist - PA / MEDICAL TECHNOLOGIST CLINICAL / Resident Statement / has reviewed & agrees with the documentation as recorded. Disposition/Present on Arrival - Present on Arrival Any Indicators Present on Arrival: No History of DVT/PE: No History of Uncontrolled Diabetes: No Urinary Catheter: No History of Decub. Ulcer: No History Surgical Site Infection Following: None - Disposition Have Diagnosis and Disposition been Completed?: Yes Diagnosis: Chest pain, Non-compliance Disposition: AGAINST MEDICAL ADVICE Disposition Time: 16:16 Condition: STABLE Discharge Instructions (ExitCare): Chest Pain (ED) Additional Instructions: -You signout against medical advice. You were advised to stay at the hospital for admission for your chest pain, continue all your medications, return to the ER for continuity of care for admission, go see your own pmd and pattern painter as soon as possible. Referrals: Renato Benton MD [Family Provider] - Follow up with primary Nancy Harding MD [Staff Provider] - Follow up with primary Forms: [employer] (Turkmen), WORK NOTE
[2018-10-05 14:53] LABS: BASO # 0.03 K/mm3 (0.0-2.0); BASO % 0.4 % (0.0-3.0); EOS % 0.1 % (1.5-5.0); GRAN # 5.5 (1.4-6.5); GRAN % 73.6 % (50.0-68.0); HEMOGLOBIN 14.7 g/dL (14.0-18.0); LYMPH # 1.1 (1.2-3.4); LYMPH % 14.3 % (22.0-35.0); MEAN CELL VOLUME 80.5 fl (80.0-105.0); MEAN CORPUSCULAR HGB CONC 33.6 g/dl (31.0-37.0); MEAN PLATELET VOLUME 9.6 fl (7.0-11.0); MONO # 0.9 (0.1-0.6); MONO % 11.6 % (1.0-6.0); RBC 5.44 10^6/uL (3.5-6.1); RED CELL DISTRIBUTION WIDTH 14.8 % (11.5-14.5); WHITE BLOOD COUNT 7.5 10^3/uL (4.5-11.0)
--- NOTE | 2018-10-05 14:55 | RAD ---
HISTORY: chest pain COMPARISON: Chest x-ray performed 12/12/17 TECHNIQUE: Chest, one view. FINDINGS: Examination limited by habitus. LUNGS: No focal consolidation. Please note that chest x-ray has limited sensitivity for the detection of pulmonary masses. PLEURA: No significant pleural effusion identified. No definite pneumothorax . CARDIOVASCULAR: Heart size appears top normal. No significant atherosclerotic calcification present. OSSEOUS STRUCTURES: Degenerative changes. VISUALIZED UPPER ABDOMEN: Unremarkable. OTHER FINDINGS: None. IMPRESSION: No focal consolidation.
[2018-10-05 15:00] LABS: ALBUMIN 4.1 g/dL (3.0-4.8); ALT/SGPT 33 U/L (7-56); AST/SGOT 25 U/L (17-59); BLOOD UREA NITROGEN 12 mg/dL (7-21); CALCIUM 9.4 mg/dL (8.4-10.5); GFR NON-AFRICAN AMERICAN > 60; LIPASE 36 U/L (23-300)
[2018-10-05 15:12] LABS: B-TYPE NATRIURETIC PEPTIDE 24.3 pg/mL (0-450); TROPONIN I < 0.01 ng/mL
[2018-10-05] MEDS ORDERED: Sodium Chloride 0.9% 1,000 ML IV STA (15:36)
[2018-10-05 16:21] VITALS: BP 126/87; PULSE 80; RESP 19; TEMP 98
[2018-10-05 16:28] VITALS: O2SAT 99
--- NOTE | 2018-10-06 09:26 | CARD ---
APPROVED REPORT Date of service: 10/05/2018 EKG Measurement Heart [id number] <Conclusion> Normal sinus rhythm RVCD Left anterior fascicular block Left ventricular hypertrophy by voltage PRWP V 1 - [address] abnormality No change except the rate is faster
--- NOTE | 2018-10-06 18:32 | US ---
HISTORY: Leg pain and swelling. Evaluate for DVT PHYSICIAN(S): Benito Tang MD. TECHNIQUE: Duplex sonography and color-flow Doppler with graded compression were used to evaluate the deep venous systems of both lower extremities. FINDINGS: The visualized deep venous systems of both lower extremities are sonographically normal and compressible. Normal wave forms and augmentation are seen. There is no sonographic evidence for deep venous thrombosis in the visualized segments of both lower extremities. IMPRESSION: No sonographic evidence for deep venous thrombosis in the visualized segments of both lower extremities.
== END 2018-10-05 16:25 | disposition left against medical advice (07) ==
LOC: ED 14:06
DX: R07.9 Chest pain, unspecified (principal); Z91.19 Patient's noncompliance with other medical treatment and regimen; I10 Essential (primary) hypertension; E11.9 Type 2 diabetes mellitus without complications
CPT/HCPCS: 71045; 80053; 82550; 82553; 83615; 83690; 83735; 83880; 84484; 85025; 85378; 93005; 93970; 96374; 99284; J1885